=== PATIENT | female | born 2000 | race Caucasian/White ===

== ENCOUNTER 2021-06-28 10:44 | Emergency (ER) | payer MEDICAID, OTHER ==
[2021-06-28 10:54] LABS: Glucose,Whole Blood 153 mg/dL (75-99)
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
[2021-06-28 11:09] LABS: Basophils % (A) 0 %; Eosinophils # (A) 0.1 k/uL (0-0.7); Eosinophils % (A) 1 %; HCT 44.1 % (34.0-46.0); HGB 14.8 gm/dL (11.4-16.0); Lymphocytes # (A) 2.1 k/uL (1.0-4.8); Lymphocytes % (A) 27 %; MCH 30.6 pg (25.0-35.0); MCHC 33.4 g/dL (31.0-37.0); MCV 91.6 fL (80.0-100.0); Mean Platelet Volume 7.3; Monocytes # (A) 0.2 k/uL (0-1.0); Monocytes % (A) 2 %; Neutrophils # (A) 5.2 k/uL (1.3-7.7); Neutrophils % (A) 68 %; Platelet Count 319 k/uL (150-450); RBC 4.81 m/uL (3.80-5.40); RDW 13.1 % (11.5-15.5); WBC 7.6 k/uL (3.8-10.6)
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
[2021-06-28 11:12] VITALS: BP 139/93; PULSE 116; RESP 22; TEMP 97.9
[2021-06-28] MEDS ORDERED: fentaNYL (PF) 50 MCG/ML 2 ML AMP IVP STA (11:13)
[2021-06-28 11:27] LABS: ALT 37 U/L (4-34); AST 81 U/L (14-36); African American GFR (CKD) >90 (>60 ml/min/1.73 sqM); Albumin 4.7 g/dL (3.5-5.0); Alcohol <10 mg/dL; Alkaline Phosphatase 52 U/L (38-126); Anion Gap 10 mmol/L; Blood Urea Nitrogen 13 mg/dL (7-17); Calcium 9.7 mg/dL (8.4-10.2); Carbon Dioxide 23 mmol/L (22-30); Chloride 103 mmol/L (98-107); Glucose 169 mg/dL (74-99); Non-African American GFR(CKD) >90 (>60 ml/min/1.73 sqM); Potassium 4.4 mmol/L (3.5-5.1); Sodium 136 mmol/L (137-145); Total Bilirubin 1.8 mg/dL (0.2-1.3); Total Protein 7.9 g/dL (6.3-8.2)
[2021-06-28 11:28] LABS: Partial Thromboplastin Time 24.4 sec (22.0-30.0); Prothrombin Time 10.9 sec (9.0-12.0)
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
[2021-06-28] MEDS ORDERED: KETOROLAC 15 MG/ML 1 ML VIAL IVP STA (12:29)
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
== END 2021-06-28 13:35 | disposition home or self-care (01) ==
LOC: EC 10:44
DX: S20.212A Contusion of left front wall of thorax, initial encounter (principal); V43.52XA Car driver injured in collision with other type car in traffic accident, initial encounter; Y92.410 Unspecified street and highway as the place of occurrence of the external cause
CPT/HCPCS: 99291; 96374; 96375; 36415; 86900; 86901; 80053; 83605; 84484; 85025; 85610; 85730; 86850; 80320; 72170; 73060; 73630; 71045; 72125; 70486; 70450; 71260; 74177; J3010; J1885; Q9967

== ENCOUNTER 2021-12-15 00:41 | Emergency (ER) | payer OTHER ==
[2021-12-15 01:22] VITALS: BP 116/79; PULSE 100; RESP 18; TEMP 98
--- NOTE | 2021-12-15 02:01 | XR ---
EXAM: XR Left Foot Complete, 3 or More Views CLINICAL HISTORY: Left foot pain. History of fall. TECHNIQUE: Frontal, lateral and oblique views of the left foot. COMPARISON: 06/28/2021. FINDINGS: Bones/joints: Normal anatomic alignment. No acute fracture, dislocation, or destructive process. Calcaneus is within normal limits. Soft tissues: Soft tissues are unremarkable. No radiopaque foreign body. IMPRESSION: No acute fracture or dislocation.
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
== END 2021-12-15 03:11 | disposition home or self-care (01) ==
LOC: EC 00:41
DX: S96.912A Strain of unspecified muscle and tendon at ankle and foot level, left foot, initial encounter (principal); X58.XXXA Exposure to other specified factors, initial encounter

== ENCOUNTER → 2023-06-03 | Outpatient (CLI) | payer OTHER ==
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
== END | disposition home or self-care (01) ==
LOC: RADMRIMAIN 17:53
PROVIDERS: ATTEND Family Medicine
DX: M54.16 Radiculopathy, lumbar region (principal); M54.50 Low back pain, unspecified
CPT/HCPCS: 72148